=== PATIENT | female | born 1980 | race African-American/Black ===

== ENCOUNTER 2023-07-20 16:33 | Inpatient (IN) | payer MEDICAID ==
[~2023-07-20] VITALS: Ht 149.9 cm; Wt 46.9 kg
[~2023-07-20 16:33] MED LIST: ASPI-1406 PO; ATOR20TA PO; B50 PO; DOCU-150 PO; FAMO20TA8 PO; FOLI-43 PO; FOLI1TAB87 PO; LEVE750T4 MT; LOSA100T33 MT; MESA400C PO; METO-539 PO; NIFE90TA60 PO; POLY510P31 PO
[2023-07-20 18:40] LABS: HEMATOCRIT. 27.7 % (36.0-48.0); HEMOGLOBIN. 8.8 g/dL (12.0-16.0); MEAN CORPUSCULAR HEMOGLOBIN 29.8 pg (28.0-32.0); MEAN CORPUSCULAR HGB CONC 31.8 g/dL (31.0-37.0); MEAN CORPUSCULAR VOLUME 93.7 fL (81.0-99.0); MEAN PLATELET VOLUME 7.8 fl (7.4-10.4); PLATELET 292 x1000/uL (130-400); RED BLOOD CELL COUNT 2.96 mill/uL (4.2-5.4); RED CELL DISTRIBUTION WIDTH 20.6 % (11.6-14.6); WHITE BLOOD COUNT 17.8 x1000/uL (4.5-11.0)
[2023-07-20] MEDS: MORPHINE SULFATE 4 MG/ML CPJ (NOT FOR IM USE) IV ONE (18:40)
[2023-07-20] MEDS: SODIUM CHLORIDE 0.9% 500 ML IV ONE (18:40)
[2023-07-20 18:51] LABS: DIFFERENTIAL COMMENT 1
[2023-07-20 18:59] LABS: ALANINE AMINOTRANSFERASE < 7 IU/L (10-49); ALBUMIN 4.5 g/dL (3.2-4.8); ASPARTATE AMINOTRANSFERASE 11 IU/L (<34); BILIRUBIN TOTAL < 0.2 mg/dL (0.1-1.0); CALCIUM 9.3 mg/dL (8.7-10.4); CARBON DIOXIDE 22 mEq/L (21-32); CHLORIDE 101 mEq/L (98-107); GLUCOSE 109 mg/dL (70-105); POTASSIUM 4.7 mEq/L (3.5-5.1); PROTEIN TOTAL 8.6 g/dL (6.0-8.3); SODIUM 136 mEq/L (136-145); UREA NITROGEN BLOOD 47 mg/dL (9-23)
[2023-07-20] MEDS: PIPERACILLIN/TAZO 3.375G/50ML 50 ML IV NR (19:00)
[2023-07-20 19:02] LABS: THYROID STIMULATING HORMONE 1.04 uIU/mL (0.55-4.78)
[2023-07-20 19:03] LABS: CREATININE 7.9 mg/dL (0.6-1.0); ETHANOL BLOOD < 10 mg/dL (<10); PROTHROMBIN TIME 11.6 sec (9.6-11.0); TROPONIN I HIGH SENSITIVITY 538 ng/L (3.0-34)
[2023-07-20 21:20] LABS: PLATELET ESTIMATE NORMAL
[2023-07-20 21:21] LABS: ANISOCYTOSIS 2+
[2023-07-20 21:22] LABS: TROPONIN I HIGH SENSITIVITY 457 ng/L (3.0-34)
[2023-07-20] MEDS: VANCOMYCIN 1G PREMIX 200 ML IV NR (22:51)
[2023-07-21] VITALS (13 sets, daily range): BP systolic 126–173; BP diastolic 81–161; PULSE 82–108; RESP 16–28; TEMP 97.4–99.4
[2023-07-21] MEDS ORDERED: ACETAMINOPHEN 325MG TABLET PO PRN (10:15)
[2023-07-21] MEDS ORDERED: IPRATROPIUM/ALBUTEROL 0.5-3(2.5)MG/3ML NEB HHN PRN (10:15)
[2023-07-21] MEDS: CLONIDINE 0.1MG TABLET PO PRN (10:57)
[2023-07-21] MEDS: ACETAMINOPHEN 325MG TABLET PO PRN (10:58)
[2023-07-21] MEDS: NIFEDIPINE XL 30MG TAB PO SCH (11:00)
[2023-07-21] MEDS: ASPIRIN 81MG EC TABLET PO SCH (11:00)
[2023-07-21] MEDS: DOCUSATE SODIUM 100MG CAPSULE PO PRN (11:02)
[2023-07-21] MEDS: NITROGLYCERIN OINT 1GM/INCH UDPKT TD SCH (12:00)
[2023-07-21 16:53] LABS: BASOPHILS % 0.3 % (0.0-2.0); EOSINOPHILS % 0.4 % (0.0-5.0); HEMATOCRIT. 24.3 % (36.0-48.0); HEMOGLOBIN. 7.8 g/dL (12.0-16.0); LYMPHOCYTES % 7.7 % (20.0-50.0); MEAN CORPUSCULAR HEMOGLOBIN 30.5 pg (28.0-32.0); MEAN CORPUSCULAR HGB CONC 32.3 g/dL (31.0-37.0); MEAN CORPUSCULAR VOLUME 94.4 fL (81.0-99.0); MEAN PLATELET VOLUME 7.7 fl (7.4-10.4); MONOCYTES % 3.4 % (2.0-8.0); NEUTROPHILS % 88.2 % (40.0-76.0); PLATELET 259 x1000/uL (130-400); RED BLOOD CELL COUNT 2.57 mill/uL (4.2-5.4); RED CELL DISTRIBUTION WIDTH 20.5 % (11.6-14.6); WHITE BLOOD COUNT 10.4 x1000/uL (4.5-11.0)
[2023-07-21 17:31] LABS: HCG SCREEN NEGATIVE
[2023-07-21] MEDS: AZITHROMYCIN 500 MG TABLET PO NR (17:31)
[2023-07-21] MEDS: DIPHENHYDRAMINE 50MG/ML VIAL IV NR (17:32)
[2023-07-21] MEDS: CEFEPIME 1,000 MG in DEXTROSE 5% WATER 50 ML IV SCH (18:05)
[2023-07-21 18:45] LABS: HEPATITIS A AB IGM NEGATIVE (Negative); HEPATITIS B CORE AB IGM NEGATIVE (Negative); HEPATITIS B SURFACE ANTIGEN NEGATIVE (Negative); HEPATITIS C AB NON REACTIVE (Neg) (Negative)
[2023-07-21] MEDS: VANCOMYCIN 500MG PREMIX 100 ML IV NR (20:29)
[2023-07-21] MEDS: METOPROLOL TARTRATE 25MG TABLET PO SCH (20:58)
[2023-07-21] MEDS: EPOETIN ALFA 4000UNITS/ML VIAL SUBCUT NR (20:58)
[2023-07-21] MEDS: ATORVASTATIN CALCIUM 20MG TABLET PO SCH (20:58)
[2023-07-22] VITALS (9 sets, daily range): BP systolic 120–145; BP diastolic 78–94; PULSE 90–100; RESP 16–25; TEMP 97.7–100.8
[2023-07-22] MEDS: NITROGLYCERIN 0.4MG TABLET SL SL PRN (01:41)
[2023-07-22 06:27] LABS: BASOPHILS % 0.6 % (0.0-2.0); DIFFERENTIAL COMMENT 0; EOSINOPHILS % 1.4 % (0.0-5.0); LYMPHOCYTES % 15.8 % (20.0-50.0); MEAN CORPUSCULAR HEMOGLOBIN 30.3 pg (28.0-32.0); MEAN CORPUSCULAR HGB CONC 32.3 g/dL (31.0-37.0); MEAN CORPUSCULAR VOLUME 93.8 fL (81.0-99.0); MEAN PLATELET VOLUME 7.8 fl (7.4-10.4); MONOCYTES % 10.7 % (2.0-8.0); NEUTROPHILS % 71.5 % (40.0-76.0); PLATELET 249 x1000/uL (130-400); RED CELL DISTRIBUTION WIDTH 19.9 % (11.6-14.6); WHITE BLOOD COUNT 7.9 x1000/uL (4.5-11.0)
[2023-07-22 06:59] LABS: ALANINE AMINOTRANSFERASE < 7 IU/L (10-49); ALBUMIN 3.9 g/dL (3.2-4.8); ASPARTATE AMINOTRANSFERASE 11 IU/L (<34); BILIRUBIN TOTAL < 0.2 mg/dL (0.1-1.0); CALCIUM 8.9 mg/dL (8.7-10.4); CARBON DIOXIDE 25 mEq/L (21-32); CHLORIDE 99 mEq/L (98-107); CHOLESTEROL 136 mg/dL (<200); GLUCOSE 118 mg/dL (70-105); HDL CHOLESTEROL 43 mg/dL (>65); LDL CHOLESTEROL 62 mg/dL (5-100); POTASSIUM 4.6 mEq/L (3.5-5.1); PROTEIN TOTAL 7.3 g/dL (6.0-8.3); SODIUM 134 mEq/L (136-145); TRIGLYCERIDE 91 mg/dL (0-150); UREA NITROGEN BLOOD 45 mg/dL (9-23)
[2023-07-22 07:00] LABS: CREATININE 6.7 mg/dL (0.6-1.0)
[2023-07-22 07:45] LABS: TROPONIN I HIGH SENSITIVITY 404 ng/L (3.0-34)
[2023-07-22 08:28] LABS: HEMATOCRIT. 20.6 % (36.0-48.0); HEMOGLOBIN. 6.7 g/dL (12.0-16.0)
[2023-07-22] MEDS: AZITHROMYCIN 250 MG TABLET PO SCH (09:08)
[2023-07-22] MEDS: DIPHENHYDRAMINE 50MG/ML VIAL IV PRN (10:56)
[2023-07-22] MEDS ORDERED: NALOXONE HCL 0.4MG/ML VIAL IV PRN (15:15)
[2023-07-22] MEDS: DIPHENHYDRAMINE 25MG CAPSULE PO PRN (15:20)
[2023-07-22] MEDS: HYDROCODONE/ACETAMINOPHEN 5/325MG TABLET PO PRN (15:21)
[2023-07-22 21:55] LABS: *AMPHETAMINES SCREEN URINE NEGATIVE (NEGATIVE); *BARBITURATES SCREEN URINE NEGATIVE (NEGATIVE); *BENZODIAZEPINES SCREEN URINE NEGATIVE (NEGATIVE); *COCAINE SCREEN URINE NEGATIVE (NEGATIVE); CANNABINOID URINE SCREEN NEGATIVE (NEGATIVE); ECSTASY MDMA SCREEN URINE NEGATIVE (NEGATIVE); METHADONE URINE SCREEN Neg (NEGATIVE); OPIATES URINE SCREEN PRESUMPTIVE POSITIVE (NEGATIVE); PHENCYCLIDINE URINE SCREEN NEGATIVE (NEGATIVE)
[2023-07-23] VITALS (12 sets, daily range): BP systolic 147–178; BP diastolic 90–119; PULSE 86–106; RESP 18–30; TEMP 97.6–98.4
[2023-07-23] MEDS: FAMOTIDINE 20MG/2ML VIAL IV NR (09:23)
[2023-07-23] MEDS: MORPHINE SULFATE 2 MG/ML CPJ (NOT FOR IM USE) IV NR (09:25)
[2023-07-23] MEDS: ONDANSETRON HCL 4MG/2ML INJ IV PRN (11:35)
[2023-07-23 12:40] LABS: HEMATOCRIT. 29.6 % (36.0-48.0); HEMOGLOBIN. 9.5 g/dL (12.0-16.0); MEAN CORPUSCULAR HEMOGLOBIN 29.2 pg (28.0-32.0); MEAN CORPUSCULAR HGB CONC 32.2 g/dL (31.0-37.0); MEAN CORPUSCULAR VOLUME 90.7 fL (81.0-99.0); MEAN PLATELET VOLUME 7.8 fl (7.4-10.4); PLATELET 312 x1000/uL (130-400); RED BLOOD CELL COUNT 3.26 mill/uL (4.2-5.4); WHITE BLOOD COUNT 13.5 x1000/uL (4.5-11.0)
[2023-07-23 12:43] LABS: DIFFERENTIAL COMMENT 1
[2023-07-23] MEDS ORDERED: LIDOCAINE HCL 1% 10 MG/ML 10ML VIAL ONE (12:53)
[2023-07-23] MEDS ORDERED: METO25TA6 PO (13:43)
[2023-07-23] MEDS ORDERED: NIFE-33 PO (13:43)
[2023-07-23 14:14] LABS: CALCIUM 8.7 mg/dL (8.7-10.4); CREATININE 4.8 mg/dL (0.6-1.0); POTASSIUM 3.7 mEq/L (3.5-5.1)
[2023-07-23] MEDS: LACTULOSE 20G/30ML UDC PO SCH (14:41)
[2023-07-23 17:53] LABS: PLATELET ESTIMATE NORMAL
[2023-07-23 17:54] LABS: ANISOCYTOSIS 2+
[2023-07-23] MEDS: EPOETIN ALFA 4000UNITS/ML VIAL SUBCUT SCH (20:52)
[2023-07-24] VITALS (7 sets, daily range): BP systolic 133–159; BP diastolic 87–103; PULSE 95–118; RESP 19–35; TEMP 99.2–99.9; O2SAT 98
[2023-07-24 06:16] LABS: HEMATOCRIT. 28.5 % (36.0-48.0); MEAN CORPUSCULAR HEMOGLOBIN 29.1 pg (28.0-32.0); MEAN CORPUSCULAR HGB CONC 31.5 g/dL (31.0-37.0); MEAN CORPUSCULAR VOLUME 92.4 fL (81.0-99.0); MEAN PLATELET VOLUME 7.4 fl (7.4-10.4); PLATELET 314 x1000/uL (130-400); RED BLOOD CELL COUNT 3.08 mill/uL (4.2-5.4); RED CELL DISTRIBUTION WIDTH 19.9 % (11.6-14.6); WHITE BLOOD COUNT 14.3 x1000/uL (4.5-11.0)
[2023-07-24 06:22] LABS: DIFFERENTIAL COMMENT 1
[2023-07-24 06:59] LABS: CALCIUM 9.4 mg/dL (8.7-10.4); POTASSIUM 4.8 mEq/L (3.5-5.1)
[2023-07-24 07:04] LABS: CREATININE 7.5 mg/dL (0.6-1.0)
[2023-07-24] MEDS: POLYETHYLENE GLYCOL 3350 (17GM) 1 DOSE PACK PO SCH (09:30)
[2023-07-24] MEDS: NITROGLYCERIN SPRAY/4.9GM CAN TL SCH (10:00)
[2023-07-24] MEDS ORDERED: IOHEXOL-350 100 ML BOTTLE ONE (10:35)
[2023-07-24 13:41] LABS: ANISOCYTOSIS 1+; PLATELET ESTIMATE NORMAL
[2023-07-24] MEDS: METOPROLOL TARTRATE 25MG TABLET PO SCH (14:26)
[2023-07-24] MEDS: METOPROLOL TARTRATE 50MG TABLET PO SCH (20:32)
[2023-07-25] VITALS (14 sets, daily range): BP systolic 87–140; BP diastolic 64–103; PULSE 88–117; RESP 15–35; TEMP 97.5–99.6
[2023-07-25] MEDS: LACTULOSE 20G/30ML UDC PO SCH (12:00)
[2023-07-25] MEDS: LACTULOSE 20G/30ML UDC PO NR (15:35)
== END 2023-07-25 18:45 | disposition home or self-care (01) | DRG 720 ==
LOC: ER 16:33 → CANBEDREQ 18:16 → 3WST 19:06
PROVIDERS: ADMIT Internal Medicine; ATTEND Internal Medicine
PROC: 5A1D70Z Performance of Urinary Filtration, Intermittent, Less than 6 Hours Per Day (ICD-10-PCS; 2023-07-21)
PROC: 30233N1 Transfusion of Nonautologous Red Blood Cells into Peripheral Vein, Percutaneous Approach (ICD-10-PCS; 2023-07-22)
PROC: 02HV33Z Insertion of Infusion Device into Superior Vena Cava, Percutaneous Approach (ICD-10-PCS; principal; 2023-07-23)
PROC: B548ZZA Ultrasonography of Superior Vena Cava, Guidance (ICD-10-PCS; 2023-07-23)
PROC: 5A1D70Z Performance of Urinary Filtration, Intermittent, Less than 6 Hours Per Day (ICD-10-PCS; 2023-07-23)
PROC: 5A1D70Z Performance of Urinary Filtration, Intermittent, Less than 6 Hours Per Day (ICD-10-PCS; 2023-07-25)
DX: A41.9 Sepsis, unspecified organism (principal); I13.2 Hypertensive heart and chronic kidney disease with heart failure and with stage 5 chronic kidney disease, or end stage renal disease; I24.89 Other forms of acute ischemic heart disease; D69.6 Thrombocytopenia, unspecified; N18.6 End stage renal disease; D63.8 Anemia in other chronic diseases classified elsewhere; Q24.5 Malformation of coronary vessels; J98.11 Atelectasis; Z20.822 Contact with and (suspected) exposure to COVID-19; I16.0 Hypertensive urgency; J06.9 Acute upper respiratory infection, unspecified; G40.909 Epilepsy, unspecified, not intractable, without status epilepticus; I50.9 Heart failure, unspecified; E78.5 Hyperlipidemia, unspecified; F15.10 Other stimulant abuse, uncomplicated; F16.10 Hallucinogen abuse, uncomplicated; K59.00 Constipation, unspecified; K21.9 Gastro-esophageal reflux disease without esophagitis; I71.9 Aortic aneurysm of unspecified site, without rupture; Z99.2 Dependence on renal dialysis; Z91.199 Patient's noncompliance with other medical treatment and regimen due to unspecified reason; Z79.899 Other long term (current) drug therapy
CPT/HCPCS: 36415; 36573; 71045; 75571; 80048; 80053; 80061; 80202; 80305; 80320; 82270; 83605; 83735; 83880; 84145; 84443; 84484; 84703; 85025; 86705; 86709; 86850; 86900; 86920; 87340; 87426; 87804; 90935; 93005; 99285; C1725; J0692; J0885; J1200; J2270; J2405; J2543; J3370; J3490; J7040; J7060; P9016; Q0163; Q9967; G0480

== ENCOUNTER 2023-08-16 21:54 | Inpatient (IN) | payer MEDICAID ==
[~2023-08-16] VITALS: Ht 162.6 cm; Wt 46.3 kg
[~2023-08-16 21:54] MED LIST changes: -LOSA100T33 MT; -METO-539 PO; +METO25TA6 PO; +NIFE-33 PO; -NIFE90TA60 PO
[2023-08-16] MEDS: DIPHENHYDRAMINE 25MG CAPSULE PO ONE (22:43)
[2023-08-16] MEDS: ACETAMINOPHEN 325MG TABLET PO ONE (22:43)
[2023-08-16 23:57] LABS: BASOPHILS % 0.4 % (0.0-2.0); EOSINOPHILS % 0.4 % (0.0-5.0); HEMATOCRIT. 29.5 % (36.0-48.0); HEMOGLOBIN. 9.5 g/dL (12.0-16.0); LYMPHOCYTES % 22.9 % (20.0-50.0); MEAN CORPUSCULAR HEMOGLOBIN 28.8 pg (28.0-32.0); MEAN CORPUSCULAR HGB CONC 32.1 g/dL (31.0-37.0); MEAN CORPUSCULAR VOLUME 89.9 fL (81.0-99.0); MEAN PLATELET VOLUME 7.5 fl (7.4-10.4); MONOCYTES % 2.8 % (2.0-8.0); NEUTROPHILS % 73.5 % (40.0-76.0); PLATELET 369 x1000/uL (130-400); RED BLOOD CELL COUNT 3.28 mill/uL (4.2-5.4); RED CELL DISTRIBUTION WIDTH 21.9 % (11.6-14.6); WHITE BLOOD COUNT 9.9 x1000/uL (4.5-11.0)
[2023-08-16 23:59] LABS: DIFFERENTIAL COMMENT 1
[2023-08-17 00:02] LABS: INR 1.1; PARTIAL THROMBOPLASTIN TIME 30.3 sec (23.4-31.0); PROTHROMBIN TIME 12.1 sec (9.6-11.0)
[2023-08-17 00:14] LABS: ALANINE AMINOTRANSFERASE 9 IU/L (10-49); ALBUMIN 4.5 g/dL (3.2-4.8); ASPARTATE AMINOTRANSFERASE 15 IU/L (<34); BILIRUBIN TOTAL < 0.2 mg/dL (0.1-1.0); CALCIUM 9.4 mg/dL (8.7-10.4); CARBON DIOXIDE 17 mEq/L (21-32); CHLORIDE 95 mEq/L (98-107); GLUCOSE 95 mg/dL (70-105); POTASSIUM 3.3 mEq/L (3.5-5.1); SODIUM 134 mEq/L (136-145); UREA NITROGEN BLOOD 98 mg/dL (9-23)
[2023-08-17 00:18] LABS: PROTEIN TOTAL 9.4 g/dL (6.0-8.3)
[2023-08-17 00:24] LABS: ETHANOL BLOOD < 10 mg/dL (<10); TROPONIN I HIGH SENSITIVITY 162 ng/L (3.0-34)
[2023-08-17] MEDS: HYDROCODONE/ACETAMINOPHEN 5/325MG TABLET PO NR (01:27)
[2023-08-17] MEDS: DIPHENHYDRAMINE 50MG/ML VIAL IV NR (01:27)
[2023-08-17] MEDS ORDERED: ACETAMINOPHEN 325MG TABLET PO PRN (13:45)
[2023-08-17] MEDS ORDERED: ONDANSETRON HCL 4MG/2ML INJ IV PRN (13:45)
[2023-08-17 16:00] VITALS: BP 141/99; PULSE 108; RESP 30; TEMP 97.5
[2023-08-17] MEDS ORDERED: NALOXONE HCL 0.4MG/ML VIAL IV PRN (16:45)
[2023-08-17] MEDS: HYDROCODONE/ACETAMINOPHEN 5/325MG TABLET PO PRN (17:01)
[2023-08-17 20:10] VITALS: BP 139/69; PULSE 97; RESP 15; TEMP 97.3
[2023-08-17] MEDS: EPOETIN ALFA 4000UNITS/ML VIAL SUBCUT SCH (21:00)
[2023-08-17 21:45] LABS: HEPATITIS A AB IGM NEGATIVE (Negative); HEPATITIS B CORE AB IGM NEGATIVE (Negative); HEPATITIS B SURFACE ANTIGEN NEGATIVE (Negative); HEPATITIS C AB NON REACTIVE (Neg) (Negative)
[2023-08-18] VITALS (15 sets, daily range): BP systolic 111–161; BP diastolic 79–115; PULSE 95–117; RESP 22–33; TEMP 97.3–98.8
[2023-08-18] MEDS: DIPHENHYDRAMINE 25MG CAPSULE PO PRN (01:28)
[2023-08-18 05:30] LABS: *AMPHETAMINES SCREEN URINE PRESUMPTIVE POSITIVE (NEGATIVE); *BARBITURATES SCREEN URINE NEGATIVE (NEGATIVE); *BENZODIAZEPINES SCREEN URINE NEGATIVE (NEGATIVE); *COCAINE SCREEN URINE NEGATIVE (NEGATIVE); CANNABINOID URINE SCREEN NEGATIVE (NEGATIVE); ECSTASY MDMA SCREEN URINE NEGATIVE (NEGATIVE); METHADONE URINE SCREEN Neg (NEGATIVE); OPIATES URINE SCREEN NEGATIVE (NEGATIVE); PHENCYCLIDINE URINE SCREEN NEGATIVE (NEGATIVE)
[2023-08-18] MEDS: CEFTRIAXONE 1GM/50ML 50 ML IV SCH (17:29)
[2023-08-18] MEDS: VANCOMYCIN 1.5GM/250ML IV NR (17:29)
[2023-08-18 22:04] LABS: HEMATOCRIT. 24.2 % (36.0-48.0); HEMOGLOBIN. 7.8 g/dL (12.0-16.0); MEAN CORPUSCULAR HEMOGLOBIN 27.9 pg (28.0-32.0); MEAN CORPUSCULAR HGB CONC 32.1 g/dL (31.0-37.0); MEAN CORPUSCULAR VOLUME 86.8 fL (81.0-99.0); MEAN PLATELET VOLUME 7.7 fl (7.4-10.4); PLATELET 357 x1000/uL (130-400); RED BLOOD CELL COUNT 2.79 mill/uL (4.2-5.4); RED CELL DISTRIBUTION WIDTH 21.3 % (11.6-14.6); WHITE BLOOD COUNT 7.6 x1000/uL (4.5-11.0)
[2023-08-18 22:10] LABS: CALCIUM 8.7 mg/dL (8.7-10.4); POTASSIUM 4.2 mEq/L (3.5-5.1)
[2023-08-18 22:11] LABS: DIFFERENTIAL COMMENT 1
[2023-08-18 22:12] LABS: CREATININE 10.7 mg/dL (0.6-1.0)
[2023-08-18 22:42] LABS: PLATELET ESTIMATE NORMAL
[2023-08-18 22:43] LABS: ANISOCYTOSIS 2+; HYPOCHROMASIA 1+
[2023-08-19 00:10] VITALS: BP 136/99; PULSE 93; RESP 27; TEMP 97.5
[2023-08-19 04:10] VITALS: BP 179/90; PULSE 102; RESP 29; TEMP 97.5
[2023-08-19 08:00] VITALS: BP 115/87; PULSE 89; RESP 22; TEMP 98
[2023-08-19 12:00] VITALS: BP 137/106; PULSE 91; RESP 28; TEMP 97.4
[2023-08-19] MEDS ORDERED: LEVO250T74 MT (14:37)
[2023-08-19 16:00] VITALS: BP 136/90; PULSE 97; RESP 24; TEMP 98.2
[2023-08-19 20:00] VITALS: BP 156/110; PULSE 129; RESP 30; TEMP 101.2
[2023-08-20] VITALS (15 sets, daily range): BP systolic 90–141; BP diastolic 56–108; PULSE 79–128; RESP 20–28; TEMP 97–101.9; O2SAT 96
[2023-08-20] MEDS: METOPROLOL TARTRATE 25MG TABLET PO SCH (09:42)
[2023-08-20] MEDS ORDERED: METOPROLOL TARTRATE 5MG/5ML VIAL IV NR (17:45)
== END 2023-08-20 20:42 | disposition home or self-care (01) | DRG 194 ==
LOC: ER 21:54 → 3WST 08-17 02:05 → EDBEDREQ 08-17 02:21
PROVIDERS: ADMIT Internal Medicine; ATTEND Internal Medicine
PROC: 5A1D70Z Performance of Urinary Filtration, Intermittent, Less than 6 Hours Per Day (ICD-10-PCS; principal; 2023-08-18)
PROC: 5A1D70Z Performance of Urinary Filtration, Intermittent, Less than 6 Hours Per Day (ICD-10-PCS; 2023-08-20)
DX: I13.2 Hypertensive heart and chronic kidney disease with heart failure and with stage 5 chronic kidney disease, or end stage renal disease (principal); N18.6 End stage renal disease; D69.6 Thrombocytopenia, unspecified; E87.1 Hypo-osmolality and hyponatremia; D63.8 Anemia in other chronic diseases classified elsewhere; R07.9 Chest pain, unspecified; Q24.5 Malformation of coronary vessels; F15.10 Other stimulant abuse, uncomplicated; R55 Syncope and collapse; F19.10 Other psychoactive substance abuse, uncomplicated; G40.909 Epilepsy, unspecified, not intractable, without status epilepticus; Z91.199 Patient's noncompliance with other medical treatment and regimen due to unspecified reason; I50.9 Heart failure, unspecified; Z99.2 Dependence on renal dialysis
CPT/HCPCS: 36415; 71045; 80048; 80053; 80305; 80320; 82962; 83880; 84145; 84484; 85025; 86705; 86709; 87340; 90935; 93005; 99285; C1893; J0696; J0885; J1200; J3370; J3490; Q0163; G0480

== ENCOUNTER 2023-09-09 12:32 | Inpatient (IN) | payer MEDICAID ==
[~2023-09-09] VITALS: Ht 149.9 cm; Wt 47.6 kg
[~2023-09-09 12:32] MED LIST changes: +LEVO250T74 MT
[2023-09-09 12:34] VITALS: O2SAT 99
[2023-09-09 13:26] LABS: MEAN CORPUSCULAR HEMOGLOBIN 27.4 pg (28.0-32.0); MEAN CORPUSCULAR HGB CONC 31.4 g/dL (31.0-37.0); MEAN CORPUSCULAR VOLUME 87.1 fL (81.0-99.0); MEAN PLATELET VOLUME 7.8 fl (7.4-10.4); PLATELET 493 x1000/uL (130-400); RED BLOOD CELL COUNT 2.28 mill/uL (4.2-5.4); RED CELL DISTRIBUTION WIDTH 24.2 % (11.6-14.6); WHITE BLOOD COUNT 17.2 x1000/uL (4.5-11.0)
[2023-09-09 13:29] LABS: CHLORIDE 99 mEq/L (98-107); POTASSIUM 3.1 mEq/L (3.5-5.1); SODIUM 137 mEq/L (136-145)
[2023-09-09 13:30] LABS: CALCIUM 8.9 mg/dL (8.7-10.4); CARBON DIOXIDE 19 mEq/L (21-32)
[2023-09-09 13:32] LABS: INR 1.1; PARTIAL THROMBOPLASTIN TIME 29.5 sec (23.4-31.0); PROTHROMBIN TIME 12.4 sec (9.6-11.0)
[2023-09-09 13:33] LABS: HCG SCREEN NEGATIVE
[2023-09-09 13:35] LABS: GLUCOSE 89 mg/dL (70-105); UREA NITROGEN BLOOD 81 mg/dL (9-23)
[2023-09-09 13:37] LABS: ALANINE AMINOTRANSFERASE 8 IU/L (10-49); ALBUMIN 3.8 g/dL (3.2-4.8); ASPARTATE AMINOTRANSFERASE 20 IU/L (<34); BILIRUBIN TOTAL < 0.2 mg/dL (0.1-1.0); PROTEIN TOTAL 8.3 g/dL (6.0-8.3)
[2023-09-09 13:43] LABS: DIFFERENTIAL COMMENT 1
[2023-09-09 13:44] LABS: HEMATOCRIT. 19.9 % (36.0-48.0); HEMOGLOBIN. 6.2 g/dL (12.0-16.0)
[2023-09-09 13:47] LABS: TROPONIN I HIGH SENSITIVITY 108 ng/L (3.0-34)
[2023-09-09 14:05] LABS: ANISOCYTOSIS 3+; HYPOCHROMASIA 1+; PLATELET ESTIMATE INCREASED; TARGET CELLS FEW
[2023-09-09] MEDS: ACETAMINOPHEN 325MG TABLET PO ONE (16:42)
[2023-09-09 19:53] LABS: HEPATITIS B SURFACE ANTIGEN NEGATIVE (Negative)
[2023-09-09] MEDS: DIPHENHYDRAMINE 50MG/ML VIAL IV ONE (20:07)
[2023-09-09 20:13] LABS: HEPATITIS A AB IGM NEGATIVE (Negative)
[2023-09-09 20:14] LABS: HEPATITIS B CORE AB IGM NEGATIVE (Negative); HEPATITIS C AB NON REACTIVE (Neg) (Negative)
[2023-09-09 23:00] VITALS: BP 118/91; PULSE 105; RESP 18; TEMP 98
[2023-09-09] MEDS ORDERED: NALOXONE HCL 0.4MG/ML VIAL IV PRN (23:45)
[2023-09-10] VITALS (13 sets, daily range): BP systolic 134–163; BP diastolic 66–103; PULSE 70–122; RESP 16–20; TEMP 97–98.6
[2023-09-10] MEDS: DIPHENHYDRAMINE 50MG/ML VIAL IV NR (00:11)
[2023-09-10] MEDS: HYDROCODONE/ACETAMINOPHEN 5/325MG TABLET PO PRN (00:12)
[2023-09-10] MEDS: DIPHENHYDRAMINE 50MG/ML VIAL IV PRN (06:30)
[2023-09-10 07:11] LABS: BASOPHILS % 0.1 % (0.0-2.0); DIFFERENTIAL COMMENT 0; EOSINOPHILS % 0.7 % (0.0-5.0); HEMATOCRIT. 27.5 % (36.0-48.0); HEMOGLOBIN. 8.7 g/dL (12.0-16.0); LYMPHOCYTES % 11.7 % (20.0-50.0); MEAN CORPUSCULAR HEMOGLOBIN 26.9 pg (28.0-32.0); MEAN CORPUSCULAR HGB CONC 31.7 g/dL (31.0-37.0); MEAN CORPUSCULAR VOLUME 84.9 fL (81.0-99.0); MEAN PLATELET VOLUME 7.9 fl (7.4-10.4); MONOCYTES % 2.1 % (2.0-8.0); NEUTROPHILS % 85.4 % (40.0-76.0); PLATELET 534 x1000/uL (130-400); RED BLOOD CELL COUNT 3.24 mill/uL (4.2-5.4); RED CELL DISTRIBUTION WIDTH 21.7 % (11.6-14.6); WHITE BLOOD COUNT 16.6 x1000/uL (4.5-11.0)
[2023-09-10 07:34] LABS: CHLORIDE 96 mEq/L (98-107); POTASSIUM 3.3 mEq/L (3.5-5.1); SODIUM 133 mEq/L (136-145)
[2023-09-10 07:35] LABS: CALCIUM 8.7 mg/dL (8.7-10.4); CARBON DIOXIDE 16 mEq/L (21-32)
[2023-09-10 07:40] LABS: CREATININE 11.4 mg/dL (0.6-1.0); GLUCOSE 71 mg/dL (70-105); UREA NITROGEN BLOOD 80 mg/dL (9-23)
[2023-09-10 07:41] LABS: ALANINE AMINOTRANSFERASE < 7 IU/L (10-49); ASPARTATE AMINOTRANSFERASE 18 IU/L (<34)
[2023-09-10 07:42] LABS: ALBUMIN 3.7 g/dL (3.2-4.8); BILIRUBIN TOTAL 0.2 mg/dL (0.1-1.0); PROTEIN TOTAL 7.7 g/dL (6.0-8.3)
[2023-09-10 16:15] LABS: TROPONIN I HIGH SENSITIVITY 97 ng/L (3.0-34)
[2023-09-10] MEDS: MESALAMINE 400 MG CAPSULE.DR PO SCH (17:14)
[2023-09-10] MEDS: ATORVASTATIN CALCIUM 20MG TABLET PO SCH (20:49)
[2023-09-10] MEDS: METOPROLOL TARTRATE 25MG TABLET PO SCH (20:50)
[2023-09-10] MEDS: LEVETIRACETAM 500MG/5ML CUP PO SCH (20:56)
[2023-09-10] MEDS: NIFEDIPINE XL 30MG TAB PO SCH (21:09)
[2023-09-10] MEDS: EPOETIN ALFA 4000UNITS/ML VIAL SUBCUT SCH (22:22)
[2023-09-11] VITALS (14 sets, daily range): BP systolic 105–130; BP diastolic 60–87; PULSE 82–108; RESP 15–20; TEMP 97–98.6
[2023-09-11 06:01] LABS: POTASSIUM 3.1 mEq/L (3.5-5.1)
[2023-09-11 06:02] LABS: CALCIUM 8.6 mg/dL (8.7-10.4)
[2023-09-11 06:08] LABS: CREATININE 7.9 mg/dL (0.6-1.0)
[2023-09-11 07:19] LABS: BASOPHILS % 0.4 % (0.0-2.0); EOSINOPHILS % 0.6 % (0.0-5.0); HEMATOCRIT. 25.8 % (36.0-48.0); HEMOGLOBIN. 8.3 g/dL (12.0-16.0); LYMPHOCYTES % 12.5 % (20.0-50.0); MEAN CORPUSCULAR HEMOGLOBIN 26.7 pg (28.0-32.0); MEAN CORPUSCULAR HGB CONC 32.1 g/dL (31.0-37.0); MEAN CORPUSCULAR VOLUME 83.3 fL (81.0-99.0); MEAN PLATELET VOLUME 7.5 fl (7.4-10.4); MONOCYTES % 2.6 % (2.0-8.0); NEUTROPHILS % 83.9 % (40.0-76.0); PLATELET 457 x1000/uL (130-400); RED BLOOD CELL COUNT 3.09 mill/uL (4.2-5.4); RED CELL DISTRIBUTION WIDTH 21.9 % (11.6-14.6); WHITE BLOOD COUNT 14.9 x1000/uL (4.5-11.0)
[2023-09-11] MEDS: FOLIC ACID/VITAMIN B COMP W-C TABLET PO SCH (08:22)
[2023-09-11] MEDS: FAMOTIDINE 20MG TABLET PO SCH (08:25)
[2023-09-11] MEDS: ASPIRIN 81MG EC TABLET PO SCH (08:25)
[2023-09-11] MEDS: FOLIC ACID 1MG TABLET PO SCH (08:26)
[2023-09-11] MEDS: POTASSIUM CHLORIDE 20MEQ TABLET SR PO SCH (12:45)
[2023-09-11] MEDS: PIPERACILLIN/TAZO 3.375G/50ML IV SCH (12:51)
[2023-09-11] MEDS ORDERED: PIPERACILLIN/TAZO 3.375G/50ML 50 ML IV SCH (14:00)
[2023-09-11] MEDS: AZITHROMYCIN 500 MG TABLET PO NR (17:15)
[2023-09-11] MEDS: VANCOMYCIN 1G PREMIX 200 ML IV SCH (17:16)
[2023-09-12] VITALS: BP 122/61; PULSE 96; RESP 18; TEMP 97.8
[2023-09-12 04:00] VITALS: BP 105/73; PULSE 95; RESP 17; TEMP 97.5
[2023-09-12 08:00] VITALS: PULSE 98; RESP 18; TEMP 98.1
[2023-09-12] MEDS: AZITHROMYCIN 500 MG TABLET PO SCH (08:45)
[2023-09-12 12:04] VITALS: BP 108/77; PULSE 89; RESP 17; TEMP 97.9
[2023-09-12] MEDS: POTASSIUM CHLORIDE 20MEQ TABLET SR PO NR (13:40)
[2023-09-12 16:23] VITALS: BP 104/71; PULSE 94; RESP 16; TEMP 97.6
[2023-09-12 17:57] LABS: BASOPHILS % 0.2 % (0.0-2.0); EOSINOPHILS % 0.7 % (0.0-5.0); HEMATOCRIT. 26.8 % (36.0-48.0); HEMOGLOBIN. 8.4 g/dL (12.0-16.0); MEAN CORPUSCULAR HEMOGLOBIN 26.9 pg (28.0-32.0); MEAN CORPUSCULAR HGB CONC 31.4 g/dL (31.0-37.0); MEAN CORPUSCULAR VOLUME 85.8 fL (81.0-99.0); MEAN PLATELET VOLUME 7.3 fl (7.4-10.4); MONOCYTES % 5.5 % (2.0-8.0); NEUTROPHILS % 81.6 % (40.0-76.0); PLATELET 500 x1000/uL (130-400); RED BLOOD CELL COUNT 3.12 mill/uL (4.2-5.4); RED CELL DISTRIBUTION WIDTH 21.5 % (11.6-14.6); WHITE BLOOD COUNT 11.7 x1000/uL (4.5-11.0)
[2023-09-12 18:03] LABS: CHLORIDE 97 mEq/L (98-107); POTASSIUM 4.3 mEq/L (3.5-5.1); SODIUM 135 mEq/L (136-145)
[2023-09-12 18:04] LABS: CALCIUM 8.8 mg/dL (8.7-10.4); CARBON DIOXIDE 23 mEq/L (21-32)
[2023-09-12 18:09] LABS: GLUCOSE 81 mg/dL (70-105); UREA NITROGEN BLOOD 43 mg/dL (9-23)
[2023-09-12 18:11] LABS: PHOSPHORUS 5.8 mg/dL (2.5-4.9)
[2023-09-12 18:12] LABS: CREATININE 6.5 mg/dL (0.6-1.0)
[2023-09-12 20:00] VITALS: BP 109/75; PULSE 100; RESP 18; TEMP 97.9
[2023-09-12 20:57] LABS: *AMPHETAMINES SCREEN URINE PRESUMPTIVE POSITIVE (NEGATIVE); *BARBITURATES SCREEN URINE NEGATIVE (NEGATIVE); *BENZODIAZEPINES SCREEN URINE NEGATIVE (NEGATIVE); *COCAINE SCREEN URINE NEGATIVE (NEGATIVE); CANNABINOID URINE SCREEN NEGATIVE (NEGATIVE); ECSTASY MDMA SCREEN URINE NEGATIVE (NEGATIVE); METHADONE URINE SCREEN NEGATIVE (NEGATIVE); OPIATES URINE SCREEN NEGATIVE (NEGATIVE); PHENCYCLIDINE URINE SCREEN NEGATIVE (NEGATIVE)
[2023-09-12] MEDS: QUETIAPINE FUMARATE 25MG TABLET PO SCH (22:57)
[2023-09-13] VITALS (9 sets, daily range): BP systolic 106–132; BP diastolic 70–85; PULSE 77–103; RESP 18–20; TEMP 97–98
[2023-09-13] MEDS: CALCIUM ACETATE 667MG CAPSULE PO SCH (16:16)
[2023-09-14] VITALS: BP 125/76; PULSE 97; RESP 18; TEMP 98.1
[2023-09-14] MEDS: VANCOMYCIN 500MG/100ML IV NR (01:15)
[2023-09-14 04:00] VITALS: BP 113/77; PULSE 79; RESP 18; TEMP 98.6
[2023-09-14 08:00] VITALS: BP 130/94; PULSE 93; RESP 18; TEMP 97.9
[2023-09-14 12:00] VITALS: BP 131/91; PULSE 78; RESP 18; TEMP 96.5
[2023-09-14 15:57] LABS: BASOPHILS % 0.6 % (0.0-2.0); HEMATOCRIT. 27.6 % (36.0-48.0); HEMOGLOBIN. 8.8 g/dL (12.0-16.0); LYMPHOCYTES % 12.4 % (20.0-50.0); MEAN CORPUSCULAR HEMOGLOBIN 27.6 pg (28.0-32.0); MEAN CORPUSCULAR VOLUME 86.1 fL (81.0-99.0); MONOCYTES % 4.7 % (2.0-8.0); NEUTROPHILS % 81.3 % (40.0-76.0); PLATELET 528 x1000/uL (130-400); RED BLOOD CELL COUNT 3.21 mill/uL (4.2-5.4); RED CELL DISTRIBUTION WIDTH 22.4 % (11.6-14.6); WHITE BLOOD COUNT 12.6 x1000/uL (4.5-11.0)
[2023-09-14 16:00] LABS: DIFFERENTIAL COMMENT 1
[2023-09-14 16:02] LABS: ADD RBC MORPHOLOGY YES
[2023-09-14 16:09] LABS: POTASSIUM 4.3 mEq/L (3.5-5.1)
[2023-09-14 16:10] LABS: CALCIUM 8.6 mg/dL (8.7-10.4)
[2023-09-14 16:24] LABS: CREATININE 7.2 mg/dL (0.6-1.0)
[2023-09-14 17:14] VITALS: BP 134/91; PULSE 89; RESP 20; TEMP 97.7
[2023-09-14 17:47] LABS: ANISOCYTOSIS 2+; PLATELET ESTIMATE INCREASED
[2023-09-14 17:48] LABS: HYPOCHROMASIA 1+
[2023-09-14 20:00] VITALS: BP 138/78; PULSE 95; RESP 17; TEMP 97.9
[2023-09-14] MEDS: QUETIAPINE FUMARATE 50MG TABLET PO SCH (21:13)
[2023-09-15] VITALS (12 sets, daily range): BP systolic 122–152; BP diastolic 61–107; PULSE 79–113; RESP 16–18; TEMP 97.2–99.7
[2023-09-16] VITALS (9 sets, daily range): BP systolic 118–151; BP diastolic 83–103; PULSE 89–113; RESP 16–18; TEMP 97.2–98.8
[2023-09-16 09:50] LABS: BASOPHILS % 0.3 % (0.0-2.0); EOSINOPHILS % 1.2 % (0.0-5.0); HEMATOCRIT. 22.9 % (36.0-48.0); HEMOGLOBIN. 7.2 g/dL (12.0-16.0); LYMPHOCYTES % 9.6 % (20.0-50.0); MEAN CORPUSCULAR HEMOGLOBIN 26.9 pg (28.0-32.0); MEAN CORPUSCULAR HGB CONC 31.4 g/dL (31.0-37.0); MEAN CORPUSCULAR VOLUME 85.7 fL (81.0-99.0); MEAN PLATELET VOLUME 7.2 fl (7.4-10.4); NEUTROPHILS % 82.9 % (40.0-76.0); PLATELET 438 x1000/uL (130-400); RED BLOOD CELL COUNT 2.68 mill/uL (4.2-5.4); WHITE BLOOD COUNT 12.2 x1000/uL (4.5-11.0)
[2023-09-16 09:53] LABS: DIFFERENTIAL COMMENT 1
[2023-09-16] MEDS ORDERED: QUET50TA PO (11:38)
[2023-09-16] MEDS ORDERED: CALC667C PO (11:38)
[2023-09-16 13:12] LABS: POTASSIUM 3.6 mEq/L (3.5-5.1)
[2023-09-16 13:13] LABS: CALCIUM 8.4 mg/dL (8.7-10.4)
[2023-09-16 13:20] LABS: CREATININE 6.2 mg/dL (0.6-1.0)
[2023-09-16] MEDS: QUETIAPINE FUMARATE 50MG TABLET PO SCH (20:47)
[2023-09-16 21:06] LABS: BASOPHILS % 0.4 % (0.0-2.0); EOSINOPHILS % 1.6 % (0.0-5.0); HEMATOCRIT. 24.6 % (36.0-48.0); HEMOGLOBIN. 7.8 g/dL (12.0-16.0); LYMPHOCYTES % 17.8 % (20.0-50.0); MEAN CORPUSCULAR HEMOGLOBIN 26.9 pg (28.0-32.0); MEAN CORPUSCULAR HGB CONC 31.5 g/dL (31.0-37.0); MEAN CORPUSCULAR VOLUME 85.4 fL (81.0-99.0); MEAN PLATELET VOLUME 7.2 fl (7.4-10.4); MONOCYTES % 9.3 % (2.0-8.0); NEUTROPHILS % 70.9 % (40.0-76.0); PLATELET 414 x1000/uL (130-400); RED BLOOD CELL COUNT 2.88 mill/uL (4.2-5.4); RED CELL DISTRIBUTION WIDTH 22.7 % (11.6-14.6); WHITE BLOOD COUNT 9.9 x1000/uL (4.5-11.0)
[2023-09-16 21:08] LABS: DIFFERENTIAL COMMENT 1
[2023-09-16 21:22] LABS: POTASSIUM 3.4 mEq/L (3.5-5.1)
[2023-09-16 21:23] LABS: CALCIUM 8.9 mg/dL (8.7-10.4)
[2023-09-16 22:00] LABS: CREATININE 7.2 mg/dL (0.6-1.0)
[2023-09-17] VITALS (12 sets, daily range): BP systolic 128–148; BP diastolic 83–103; PULSE 82–104; RESP 16–18; TEMP 97.6–98.6
[2023-09-17] MEDS ORDERED: AMOX1TAB15 MT (14:17)
== END 2023-09-17 17:58 | disposition left against medical advice (07) | DRG 721 ==
LOC: ER 12:32 → EDBEDREQ 18:29 → EDBEDREQTM 18:29 → 8WST 22:50
PROVIDERS: ADMIT Internal Medicine; ATTEND Internal Medicine
PROC: 30233N1 Transfusion of Nonautologous Red Blood Cells into Peripheral Vein, Percutaneous Approach (ICD-10-PCS; 2023-09-09)
PROC: 5A1D70Z Performance of Urinary Filtration, Intermittent, Less than 6 Hours Per Day (ICD-10-PCS; principal; 2023-09-10)
PROC: 5A1D70Z Performance of Urinary Filtration, Intermittent, Less than 6 Hours Per Day (ICD-10-PCS; 2023-09-11)
PROC: 5A1D70Z Performance of Urinary Filtration, Intermittent, Less than 6 Hours Per Day (ICD-10-PCS; 2023-09-13)
PROC: 5A1D70Z Performance of Urinary Filtration, Intermittent, Less than 6 Hours Per Day (ICD-10-PCS; 2023-09-15)
PROC: 5A1D70Z Performance of Urinary Filtration, Intermittent, Less than 6 Hours Per Day (ICD-10-PCS; 2023-09-17)
DX: T80.211A Bloodstream infection due to central venous catheter, initial encounter (principal); A41.9 Sepsis, unspecified organism; D69.6 Thrombocytopenia, unspecified; I13.2 Hypertensive heart and chronic kidney disease with heart failure and with stage 5 chronic kidney disease, or end stage renal disease; N18.6 End stage renal disease; D63.8 Anemia in other chronic diseases classified elsewhere; E83.51 Hypocalcemia; Z99.2 Dependence on renal dialysis; Z91.148 Patient's other noncompliance with medication regimen for other reason; I50.9 Heart failure, unspecified; G40.909 Epilepsy, unspecified, not intractable, without status epilepticus; F39 Unspecified mood [affective] disorder; E87.6 Hypokalemia; D75.839 Thrombocytosis, unspecified; Z53.29 Procedure and treatment not carried out because of patient's decision for other reasons
CPT/HCPCS: 36415; 71045; 74018; 76700; 80048; 80053; 80202; 80305; 83735; 83880; 84100; 84145; 84484; 84703; 85025; 86705; 86709; 86850; 86900; 86920; 87340; 90935; 93005; 99291; C1893; J0885; J1200; J2543; J3370; P9016

== ENCOUNTER 2023-11-17 14:23 | Emergency (ER) | payer MEDICAID ==
[~2023-11-17] VITALS: Ht 147.3 cm; Wt 45.0 kg
[2023-11-17] MEDS: ALBUTEROL (0.083%) 2.5MG/3ML NEB HHN ONE (07:15)
[~2023-11-17 14:23] MED LIST changes: +CALC667C PO; +CETI10TA6 PO; -LEVO250T74 MT; +QUET50TA PO
[2023-11-17 14:34] VITALS: TEMP 98.4
[2023-11-17] MEDS: MORPHINE SULFATE 4 MG/ML INJ (FOR IV/IM USE) IV STA (15:38)
[2023-11-17 16:02] LABS: CHLORIDE 101 mEq/L (98-107); SODIUM 130 mEq/L (136-145)
[2023-11-17 16:03] LABS: CARBON DIOXIDE 18 mEq/L (21-32)
[2023-11-17 16:04] LABS: CALCIUM 9.3 mg/dL (8.7-10.4)
[2023-11-17 16:05] LABS: BASOPHILS % 0.3 % (0.0-2.0); EOSINOPHILS % 0.1 % (0.0-5.0); HEMOGLOBIN. 7.6 g/dL (12.0-16.0); LYMPHOCYTES % 7.3 % (20.0-50.0); MEAN CORPUSCULAR HEMOGLOBIN 27.3 pg (28.0-32.0); MEAN CORPUSCULAR HGB CONC 30.3 g/dL (31.0-37.0); MEAN CORPUSCULAR VOLUME 90.2 fL (81.0-99.0); MEAN PLATELET VOLUME 6.7 fl (7.4-10.4); MONOCYTES % 6.7 % (2.0-8.0); NEUTROPHILS % 85.6 % (40.0-76.0); PLATELET 226 x1000/uL (130-400); RED BLOOD CELL COUNT 2.77 mill/uL (4.2-5.4); WHITE BLOOD COUNT 11.4 x1000/uL (4.5-11.0)
[2023-11-17 16:06] LABS: HCG SCREEN NEGATIVE
[2023-11-17 16:07] LABS: DIFFERENTIAL COMMENT 1
[2023-11-17 16:08] LABS: ADD RBC MORPHOLOGY YES; GLUCOSE 98 mg/dL (70-105); UREA NITROGEN BLOOD 67 mg/dL (9-23)
[2023-11-17 16:14] VITALS: BP 175/127
[2023-11-17 16:19] LABS: TROPONIN I HIGH SENSITIVITY 103 ng/L (3.0-34)
[2023-11-17 17:15] VITALS: PULSE 122; RESP 22; O2SAT 97
[2023-11-17] MEDS: DEXTROSE 50% WATER 50ML SYRINGE IV ONE (17:40)
[2023-11-17] MEDS: INSULIN REGULAR (HUMULIN R) 1000UNITS/10ML VIAL IV ONE (17:41)
[2023-11-17 18:18] LABS: PLATELET ESTIMATE NORMAL
== END 2023-11-17 19:24 | disposition short-term general hospital (02) ==
LOC: ER 14:25
DX: M25.511 Pain in right shoulder (principal); M25.512 Pain in left shoulder; R06.00 Dyspnea, unspecified; I12.0 Hypertensive chronic kidney disease with stage 5 chronic kidney disease or end stage renal disease; F15.10 Other stimulant abuse, uncomplicated; N18.6 End stage renal disease; Z99.2 Dependence on renal dialysis; Z90.49 Acquired absence of other specified parts of digestive tract; Z79.899 Other long term (current) drug therapy
CPT/HCPCS: 80048; 84703; 83880; 83605; 85025; 84484; 36415; 94640; 93005; 96374; 96375; 99285; J1815; J2270; Z7610 ×2; 94644

== ENCOUNTER 2024-02-15 08:55 | Inpatient (IN) | payer OTHER ==
[~2024-02-15] VITALS: Ht 157.5 cm; Wt 59.4 kg
[~2024-02-15 08:55] MED LIST changes: -B50 PO; -CETI10TA6 PO; -FAMO20TA8 PO; -POLY510P31 PO
[2024-02-15 10:03] LABS: CHLORIDE 99 mEq/L (98-107); POTASSIUM 3.2 mEq/L (3.5-5.1); SODIUM 136 mEq/L (136-145)
[2024-02-15 10:04] LABS: CALCIUM 8.7 mg/dL (8.7-10.4); CARBON DIOXIDE 30 mEq/L (21-32)
[2024-02-15 10:09] LABS: GLUCOSE 97 mg/dL (70-105); UREA NITROGEN BLOOD 20 mg/dL (9-23)
[2024-02-15 10:13] LABS: PROTHROMBIN TIME 11.1 sec (9.6-11.0)
[2024-02-15 10:17] LABS: BASOPHILS % 0.4 % (0.0-2.0); EOSINOPHILS % 2.6 % (0.0-5.0); HEMATOCRIT. 26.8 % (36.0-48.0); HEMOGLOBIN. 8.5 g/dL (12.0-16.0); LYMPHOCYTES % 17.6 % (20.0-50.0); MEAN CORPUSCULAR HEMOGLOBIN 28.2 pg (28.0-32.0); MEAN CORPUSCULAR HGB CONC 31.8 g/dL (31.0-37.0); MEAN CORPUSCULAR VOLUME 88.7 fL (81.0-99.0); MEAN PLATELET VOLUME 6.7 fl (7.4-10.4); MONOCYTES % 12.9 % (2.0-8.0); NEUTROPHILS % 66.5 % (40.0-76.0); PLATELET 249 x1000/uL (130-400); RED BLOOD CELL COUNT 3.02 mill/uL (4.2-5.4); RED CELL DISTRIBUTION WIDTH 18.9 % (11.6-14.6); WHITE BLOOD COUNT 4.9 x1000/uL (4.5-11.0)
[2024-02-15 10:24] LABS: CREATININE 4.6 mg/dL (0.6-1.0)
[2024-02-15 10:28] LABS: TROPONIN I HIGH SENSITIVITY 87 ng/L (3.0-34)
[2024-02-15] MEDS: MORPHINE SULFATE 4 MG/ML INJ (FOR IV/IM USE) IV STA (10:53)
[2024-02-15] MEDS: ONDANSETRON HCL 4MG/2ML INJ IV STA (10:54)
[2024-02-15] MEDS: HYDRALAZINE 20MG/ML VIAL IV ONE (10:54)
[2024-02-15] MEDS ORDERED: DEXTROSE 50% WATER 50ML SYRINGE IV PRN (12:45)
[2024-02-15] MEDS ORDERED: IPRATROPIUM/ALBUTEROL 0.5-3(2.5)MG/3ML NEB HHN PRN (12:45)
[2024-02-15] MEDS: POTASSIUM CHLORIDE 20MEQ TABLET SR PO NR (13:51)
[2024-02-15] MEDS: NIFEDIPINE XL 30MG TAB PO SCH (14:09)
[2024-02-15] MEDS: BLOOD SUGAR DIAGNOSTIC STRIP TEST SCH (14:13)
[2024-02-15 14:25] LABS: IRON 62 ug/dL (50-170)
[2024-02-15 14:28] LABS: PHOSPHORUS 3.2 mg/dL (2.5-4.9); TOTAL IRON BINDING CAPACITY 287 ug/dl (250-425)
[2024-02-15 16:00] LABS: CREATINE KINASE MB FRACTION < 0.5 ng/mL (0.5-3.6)
[2024-02-15] MEDS ORDERED: ENOXAPARIN 30MG/0.3ML SYR SUBCUT SCH (16:00)
[2024-02-15 16:02] LABS: CREATINE KINASE 50 IU/L (34-145)
[2024-02-15 16:04] LABS: FERRITIN 638 ng/mL (10-291)
[2024-02-15 16:05] LABS: FOLIC ACID (FOLATE) SERUM 18.34 ng/mL (>5.38); VITAMIN B12 SERUM 354 pg/mL (211-911)
[2024-02-15 16:07] LABS: TROPONIN I HIGH SENSITIVITY 80 ng/L (3.0-34)
[2024-02-15] MEDS: HYDRALAZINE 20MG/ML VIAL IV PRN (17:04)
[2024-02-15 17:30] VITALS: BP 182/120; PULSE 90; RESP 16; TEMP 35.78064
[2024-02-15] MEDS ORDERED: LOSA100T33 PO (19:21)
[2024-02-15] MEDS: ACETAMINOPHEN 325MG TABLET PO PRN (19:28)
[2024-02-15 20:00] VITALS: BP 156/99; PULSE 103; RESP 20; TEMP 37.00296; O2SAT 97
[2024-02-15] MEDS: LOSARTAN 100 MG TABLET PO SCH (20:09)
[2024-02-15 20:11] LABS: HEPATITIS B SURFACE ANTIGEN NEGATIVE (Negative)
[2024-02-15 20:32] LABS: HEPATITIS A AB IGM NEGATIVE (Negative); HEPATITIS B CORE AB IGM NEGATIVE (Negative)
[2024-02-15 20:33] LABS: HEPATITIS C AB NON REACTIVE (Neg) (Negative)
[2024-02-15] MEDS: MESALAMINE 400 MG CAPSULE.DR PO SCH (21:09)
[2024-02-15] MEDS: LEVETIRACETAM 500MG/5ML CUP PO SCH (21:09)
[2024-02-15] MEDS: METOPROLOL TARTRATE 25MG TABLET PO SCH (21:10)
[2024-02-15] MEDS: FAMOTIDINE 20MG TABLET PO SCH (21:10)
[2024-02-15] MEDS: EPOETIN ALFA-EPBX 4,000 UNIT/ML VIAL SUBCUT SCH (21:11)
[2024-02-15 22:13] VITALS: BP 150/89; PULSE 99; RESP 19; TEMP 36.8628
[2024-02-16] VITALS (17 sets, daily range): BP systolic 93–209; BP diastolic 65–128; PULSE 75–106; RESP 16–20; TEMP 36.114–38.22528; O2SAT 95–100
[2024-02-16 00:19] LABS: CREATINE KINASE MB FRACTION < 0.5 ng/mL (0.5-3.6)
[2024-02-16 00:20] LABS: CREATINE KINASE 44 IU/L (34-145)
[2024-02-16 00:24] LABS: TROPONIN I HIGH SENSITIVITY 85 ng/L (3.0-34)
[2024-02-16] MEDS ORDERED: ASPIRIN 81MG EC TABLET PO SCH (09:00)
[2024-02-16] MEDS: DIPHENHYDRAMINE 50MG/ML VIAL IV STA (09:26)
[2024-02-16] MEDS: FOLIC ACID 1MG TABLET PO SCH (11:32)
[2024-02-16] MEDS: DIPHENHYDRAMINE 25MG CAPSULE PO PRN (11:34)
[2024-02-16 13:58] LABS: CALCIUM 8.5 mg/dL (8.7-10.4); CARBON DIOXIDE 26 mEq/L (21-32); CHLORIDE 102 mEq/L (98-107); POTASSIUM 4.6 mEq/L (3.5-5.1); SODIUM 135 mEq/L (136-145)
[2024-02-16 14:03] LABS: CREATININE 4.3 mg/dL (0.6-1.0); GLUCOSE 98 mg/dL (70-105)
[2024-02-16 14:04] LABS: LDL CHOLESTEROL 62 mg/dL (5-100); TRIGLYCERIDE 130 mg/dL (0-150); UREA NITROGEN BLOOD 17 mg/dL (9-23)
[2024-02-16 14:05] LABS: ALANINE AMINOTRANSFERASE < 7 IU/L (10-49); ALBUMIN 3.5 g/dL (3.2-4.8); ASPARTATE AMINOTRANSFERASE 12 IU/L (<34); CHOLESTEROL 144 mg/dL (<200); HDL CHOLESTEROL 53 mg/dL (>65)
[2024-02-16 14:06] LABS: BILIRUBIN TOTAL < 0.2 mg/dL (0.1-1.0); PHOSPHORUS 3.6 mg/dL (2.5-4.9)
[2024-02-16 14:08] LABS: T4 FREE 0.76 ng/dL (0.89-1.76); THYROID STIMULATING HORMONE 1.65 uIU/mL (0.55-4.78)
[2024-02-16 14:09] LABS: BILIRUBIN DIRECT < 0.1 mg/dL (<=3.0)
[2024-02-16 14:30] LABS: BASOPHILS % 0.3 % (0.0-2.0); EOSINOPHILS % 1.6 % (0.0-5.0); HEMOGLOBIN. 9.4 g/dL (12.0-16.0); LYMPHOCYTES % 14.4 % (20.0-50.0); MEAN CORPUSCULAR HEMOGLOBIN 29.2 pg (28.0-32.0); MEAN CORPUSCULAR HGB CONC 31.4 g/dL (31.0-37.0); MEAN CORPUSCULAR VOLUME 93.1 fL (81.0-99.0); MONOCYTES % 9.1 % (2.0-8.0); NEUTROPHILS % 74.6 % (40.0-76.0); PLATELET 226 x1000/uL (130-400); RED BLOOD CELL COUNT 3.22 mill/uL (4.2-5.4); WHITE BLOOD COUNT 8.1 x1000/uL (4.5-11.0)
[2024-02-16] MEDS ORDERED: NALOXONE HCL 0.4MG/ML VIAL IV PRN (16:15)
[2024-02-16] MEDS: HYDROCODONE/ACETAMINOPHEN 5/325MG TABLET PO PRN (16:38)
[2024-02-16] MEDS: QUETIAPINE FUMARATE 50MG TABLET PO SCH (21:43)
[2024-02-16] MEDS: NIFEDIPINE XL 60MG TAB PO SCH (21:44)
[2024-02-17] VITALS (11 sets, daily range): BP systolic 101–198; BP diastolic 70–123; PULSE 70–105; RESP 18–20; TEMP 36.55848–38.00304; O2SAT 97–100
[2024-02-17 08:50] LABS: BASOPHILS % 0.9 % (0.0-2.0); EOSINOPHILS % 1.4 % (0.0-5.0); HEMATOCRIT. 31.2 % (36.0-48.0); HEMOGLOBIN. 9.9 g/dL (12.0-16.0); LYMPHOCYTES % 12.2 % (20.0-50.0); MEAN CORPUSCULAR HEMOGLOBIN 28.4 pg (28.0-32.0); MEAN CORPUSCULAR HGB CONC 31.8 g/dL (31.0-37.0); MEAN CORPUSCULAR VOLUME 89.4 fL (81.0-99.0); MEAN PLATELET VOLUME 6.6 fl (7.4-10.4); MONOCYTES % 9.5 % (2.0-8.0); PLATELET 249 x1000/uL (130-400); RED BLOOD CELL COUNT 3.49 mill/uL (4.2-5.4); WHITE BLOOD COUNT 9.4 x1000/uL (4.5-11.0)
[2024-02-17 09:17] LABS: CARBON DIOXIDE 25 mEq/L (21-32); CHLORIDE 101 mEq/L (98-107); SODIUM 134 mEq/L (136-145)
[2024-02-17 09:18] LABS: CALCIUM 9.3 mg/dL (8.7-10.4)
[2024-02-17 09:23] LABS: GLUCOSE 86 mg/dL (70-105); UREA NITROGEN BLOOD 28 mg/dL (9-23)
[2024-02-17 09:25] LABS: PHOSPHORUS 5.2 mg/dL (2.5-4.9)
[2024-02-17 09:28] LABS: T4 FREE 0.63 ng/dL (0.89-1.76)
[2024-02-17 09:38] LABS: CREATININE 6.2 mg/dL (0.6-1.0)
[2024-02-17 09:39] LABS: TROPONIN I HIGH SENSITIVITY 63 ng/L (3.0-34)
[2024-02-17] MEDS: DIPHENHYDRAMINE 50MG/ML VIAL IV NR (15:01)
[2024-02-17 16:45] LABS: CREATINE KINASE MB FRACTION < 0.5 ng/mL (0.5-3.6)
[2024-02-17 16:47] LABS: CREATINE KINASE 35 IU/L (34-145)
[2024-02-17] MEDS: CLONIDINE 0.2MG TABLET PO NR (17:21)
[2024-02-18] VITALS: BP 128/99; PULSE 80; RESP 20; TEMP 36.114
[2024-02-18 00:49] LABS: CREATINE KINASE MB FRACTION < 0.5 ng/mL (0.5-3.6)
[2024-02-18 00:51] LABS: CREATINE KINASE 23 IU/L (34-145)
[2024-02-18 04:00] VITALS: BP 145/89; PULSE 98; RESP 20; TEMP 37.00296
[2024-02-18 08:00] VITALS: BP 141/100; PULSE 101; RESP 18; TEMP 36.114; O2SAT 96
[2024-02-18 11:04] LABS: BASOPHILS % 0.3 % (0.0-2.0); EOSINOPHILS % 0.7 % (0.0-5.0); HEMATOCRIT. 33.3 % (36.0-48.0); HEMOGLOBIN. 10.4 g/dL (12.0-16.0); LYMPHOCYTES % 8.2 % (20.0-50.0); MEAN CORPUSCULAR HEMOGLOBIN 28.4 pg (28.0-32.0); MEAN CORPUSCULAR HGB CONC 31.2 g/dL (31.0-37.0); MEAN CORPUSCULAR VOLUME 91.1 fL (81.0-99.0); MEAN PLATELET VOLUME 7.2 fl (7.4-10.4); MONOCYTES % 7.3 % (2.0-8.0); NEUTROPHILS % 83.5 % (40.0-76.0); PLATELET 255 x1000/uL (130-400); RED BLOOD CELL COUNT 3.66 mill/uL (4.2-5.4); RED CELL DISTRIBUTION WIDTH 19.4 % (11.6-14.6); WHITE BLOOD COUNT 8.2 x1000/uL (4.5-11.0)
[2024-02-18 11:09] LABS: CHLORIDE 101 mEq/L (98-107); POTASSIUM 4.3 mEq/L (3.5-5.1); SODIUM 135 mEq/L (136-145)
[2024-02-18 11:10] LABS: CALCIUM 9.5 mg/dL (8.7-10.4); CARBON DIOXIDE 24 mEq/L (21-32)
[2024-02-18 11:14] LABS: CREATINE KINASE MB FRACTION < 0.5 ng/mL (0.5-3.6)
[2024-02-18 11:15] LABS: GLUCOSE 174 mg/dL (70-105); UREA NITROGEN BLOOD 30 mg/dL (9-23)
[2024-02-18 11:17] LABS: CREATINE KINASE 25 IU/L (34-145); PHOSPHORUS 6.6 mg/dL (2.5-4.9)
[2024-02-18 12:00] VITALS: BP 140/98; PULSE 83; RESP 18; TEMP 36.114; TEMP 36.11400; O2SAT 97
[2024-02-18 14:21] VITALS: BP 140/98; PULSE 83; TEMP 97; O2SAT 97
== END 2024-02-18 17:42 | disposition home or self-care (01) | DRG 52 ==
LOC: ER 09:06 → EDBEDREQ 09:39 → 8WST 12:06 → EDBEDREQ 12:09
PROVIDERS: ADMIT Internal Medicine; ATTEND Internal Medicine
DX: I67.4 Hypertensive encephalopathy (principal); D69.6 Thrombocytopenia, unspecified; N18.6 End stage renal disease; I13.2 Hypertensive heart and chronic kidney disease with heart failure and with stage 5 chronic kidney disease, or end stage renal disease; D63.8 Anemia in other chronic diseases classified elsewhere; D57.1 Sickle-cell disease without crisis; E11.22 Type 2 diabetes mellitus with diabetic chronic kidney disease; E78.5 Hyperlipidemia, unspecified; D50.8 Other iron deficiency anemias; E55.9 Vitamin D deficiency, unspecified; E87.6 Hypokalemia; F15.10 Other stimulant abuse, uncomplicated; F16.10 Hallucinogen abuse, uncomplicated; G40.909 Epilepsy, unspecified, not intractable, without status epilepticus; I50.32 Chronic diastolic (congestive) heart failure; R55 Syncope and collapse
CPT/HCPCS: 36415; 71045; 80048; 80061; 80076; 82306; 82550; 82553; 82607; 82728; 82746; 82962; 83036; 83540; 83550; 83605; 83735; 84100; 84145; 84439; 84443; 84484; 85025; 86705; 86709; 86850; 86900; 87340; 90935; 93005; 93306; 99285; C1893; J0360; J0885; J1200; J2270; J2405; Q0163

== ENCOUNTER 2024-11-13 19:53 | Inpatient (IN) | payer MEDICAID, OTHER ==
[~2024-11-13] VITALS: Ht 215.9 cm; Wt 56.3 kg
[~2024-11-13 19:53] MED LIST changes: -DOCU-150 PO; +DOCU-422 PO; +LOSA100T33 PO
[2024-11-13 21:23] LABS: BASOPHILS % 0.8 % (0.0-2.0); EOSINOPHILS % 1.4 % (0.0-5.0); HEMATOCRIT. 37.1 % (36.0-48.0); HEMOGLOBIN. 11.7 g/dL (12.0-16.0); LYMPHOCYTES % 23.1 % (20.0-50.0); MEAN PLATELET VOLUME 6.9 fl (7.4-10.4); MONOCYTES % 13.7 % (2.0-8.0); NEUTROPHILS % 61.0 % (40.0-76.0); PLATELET 290 x1000/uL (130-400); RED BLOOD CELL COUNT 4.03 mill/uL (4.2-5.4); RED CELL DISTRIBUTION WIDTH 24.9 % (11.6-14.6)
[2024-11-13] MEDS: MORPHINE SULFATE 4 MG/ML INJ (FOR IV/IM USE) IV ONE (21:23)
[2024-11-13] MEDS: LABETALOL 5MG/ML 4ML INJ IV ONE (21:24)
[2024-11-13 21:26] LABS: ADD RBC MORPHOLOGY YES
[2024-11-13 21:31] LABS: INR 1.0
[2024-11-13 21:40] LABS: UREA NITROGEN BLOOD 76 mg/dL (9-23)
[2024-11-13 21:56] LABS: CREATININE 9.5 mg/dL (0.6-1.0)
[2024-11-13 21:57] LABS: TROPONIN I HIGH SENSITIVITY 188 ng/L (3.0-34)
[2024-11-13] MEDS: PIPERACILLIN/TAZO 3.375G/50ML 50 ML IV SCH (22:05)
[2024-11-13] MEDS: HYDRALAZINE 20MG/ML VIAL IV NR (22:05)
[2024-11-13 22:17] LABS: ASPARTATE AMINOTRANSFERASE 14 IU/L (<34); BILIRUBIN DIRECT < 0.1 mg/dL (<=3.0)
[2024-11-13 22:18] LABS: BILIRUBIN TOTAL < 0.2 mg/dL (0.1-1.0); PROTEIN TOTAL 7.1 g/dL (6.0-8.3)
[2024-11-13] MEDS: DIPHENHYDRAMINE 50MG CAPSULE PO ONE (22:45)
[2024-11-13 23:37] LABS: PLATELET ESTIMATE NORMAL
[2024-11-14] VITALS (80 sets, daily range): BP systolic 109–229; BP diastolic 81–140; PULSE 82–132; RESP 11–28; TEMP 36.50292–37; O2SAT 92–99
[2024-11-14] MEDS: DIPHENHYDRAMINE 50MG/ML VIAL IV ONE (00:28)
[2024-11-14 00:31] LABS: TROPONIN I HIGH SENSITIVITY 195 ng/L (3.0-34)
[2024-11-14 01:08] LABS: HCG SCREEN NEGATIVE
[2024-11-14] MEDS: NITROGLYCERIN 50MG PREMIX 250 ML IV STA (01:47)
[2024-11-14] MEDS: HYDROCODONE/ACETAMINOPHEN 5/325MG TABLET PO PRN (04:27)
[2024-11-14] MEDS ORDERED: NALOXONE HCL 0.4MG/ML VIAL IV PRN (04:30)
[2024-11-14] MEDS: NICARDIPINE 40MG/200ML PREMIX 200 ML IV PRN (04:46)
[2024-11-14] MEDS: CALCIUM ACETATE 667MG CAPSULE PO SCH (06:20)
[2024-11-14] MEDS: DIPHENHYDRAMINE 50MG/ML VIAL IV PRN (06:58)
[2024-11-14] MEDS ORDERED: ONDANSETRON HCL 4MG/2ML INJ IV PRN (08:00)
[2024-11-14] MEDS: MESALAMINE 400 MG CAPSULE.DR PO SCH (09:54)
[2024-11-14] MEDS: ASPIRIN 81MG EC TABLET PO SCH (09:54)
[2024-11-14] MEDS: LOSARTAN 100 MG TABLET PO SCH (09:54)
[2024-11-14] MEDS: FOLIC ACID 1MG TABLET PO SCH (09:55)
[2024-11-14] MEDS: METOPROLOL TARTRATE 25MG TABLET PO SCH (09:55)
[2024-11-14] MEDS: DOCUSATE SODIUM 100MG CAPSULE PO SCH (09:55)
[2024-11-14] MEDS: FAMOTIDINE 20MG/2ML VIAL IV SCH (09:55)
[2024-11-14] MEDS: PANTOPRAZOLE SODIUM 40 MG/VIAL IV SCH (09:56)
[2024-11-14] MEDS: ONDANSETRON HCL 4MG/2ML INJ IV PRN (10:40)
[2024-11-14 14:02] LABS: HEPATITIS C AB NON REACTIVE (Neg) (Negative)
[2024-11-14 14:58] LABS: HEPATITIS A AB IGM NEGATIVE (Negative); HEPATITIS B CORE AB IGM NEGATIVE (Negative)
[2024-11-14 14:59] LABS: HEPATITIS C AB NON REACTIVE (Neg) (Negative)
[2024-11-14] MEDS ORDERED: ALBUMIN HUMAN 25GM/500ML (5%) IV NR (18:00)
[2024-11-14] MEDS: MORPHINE SULFATE 2 MG/ML INJ (NOT FOR IM USE) IV PRN (20:36)
[2024-11-14] MEDS: ATORVASTATIN CALCIUM 20MG TABLET PO SCH (20:51)
[2024-11-14] MEDS: QUETIAPINE FUMARATE 50MG TABLET PO SCH ×2 (20:51)
[2024-11-14] MEDS ORDERED: QUETIAPINE FUMARATE 200MG TABLET PO SCH (21:00)
[2024-11-14] MEDS: CARVEDILOL 12.5MG TABLET PO SCH (23:12)
[2024-11-14] MEDS: QUETIAPINE FUMARATE 200MG TABLET PO NR (23:12)
[2024-11-14] MEDS: TRAZODONE HCL 50MG TABLET PO SCH (23:13)
[2024-11-15] VITALS (82 sets, daily range): BP systolic 116–176; BP diastolic 79–118; PULSE 93–130; RESP 11–27; TEMP 36.114–36.9; O2SAT 92–100
[2024-11-15 05:11] LABS: HEMATOCRIT. 33.8 % (36.0-48.0); HEMOGLOBIN. 10.6 g/dL (12.0-16.0); MEAN PLATELET VOLUME 6.6 fl (7.4-10.4); PLATELET 220 x1000/uL (130-400); RED BLOOD CELL COUNT 3.70 mill/uL (4.2-5.4); RED CELL DISTRIBUTION WIDTH 25.2 % (11.6-14.6)
[2024-11-15] MEDS: NIFEDIPINE XL 30MG TAB PO SCH (05:29)
[2024-11-15 05:32] LABS: UREA NITROGEN BLOOD 47.0 mg/dL (9-23)
[2024-11-15 05:43] LABS: CREATININE 8.0 mg/dL (0.6-1.0)
[2024-11-15] MEDS: ASPIRIN 81MG EC TABLET PO SCH (08:56)
[2024-11-15] MEDS: QUETIAPINE FUMARATE 200MG TABLET PO SCH (09:00)
[2024-11-15] MEDS: HYDRALAZINE HCL 25MG TABLET PO NR (11:32)
[2024-11-15] MEDS: CARVEDILOL 12.5MG TABLET PO NR (11:33)
[2024-11-15] MEDS: NIFEDIPINE XL 30MG TAB PO NR (12:23)
[2024-11-15 14:25] LABS: EOSINOPHILS % MANUAL 1.0 % (0.0-5.0); LYMPHOCYTES % MANUAL 20.0 % (20.0-60.0); MONOCYTES % MANUAL 14.0 % (2.0-8.0); NEUTROPHILS % MANUAL 65.0 % (45.0-75.0); PLATELET ESTIMATE NORMAL
[2024-11-15] MEDS: HYDRALAZINE 20MG/ML VIAL IV PRN (18:49)
[2024-11-15] MEDS: PIPERACILLIN/TAZO 3.375G/50ML IV SCH (21:03)
[2024-11-15] MEDS: CARVEDILOL 12.5MG TABLET PO SCH (21:04)
[2024-11-15] MEDS: NIFEDIPINE XL 60MG TAB PO SCH (21:05)
[2024-11-15] MEDS: HYDRALAZINE HCL 25MG TABLET PO SCH (21:42)
[2024-11-16] VITALS (25 sets, daily range): BP systolic 116–167; BP diastolic 67–121; PULSE 91–114; RESP 14–27; TEMP 36.9; O2SAT 87–100
[2024-11-16 05:38] LABS: HEMATOCRIT. 37.3 % (36.0-48.0); HEMOGLOBIN. 11.6 g/dL (12.0-16.0); MEAN PLATELET VOLUME 6.5 fl (7.4-10.4); PLATELET 212 x1000/uL (130-400); RED BLOOD CELL COUNT 4.05 mill/uL (4.2-5.4); RED CELL DISTRIBUTION WIDTH 24.4 % (11.6-14.6)
[2024-11-16 05:58] LABS: UREA NITROGEN BLOOD 29.0 mg/dL (9-23)
[2024-11-16 06:02] LABS: CREATININE 5.9 mg/dL (0.6-1.0)
[2024-11-16] MEDS: SODIUM ZIRCONIUM CYCLOSILICATE 10GM/PACKET PO SCH (09:16)
[2024-11-16 09:34] LABS: BAND% 2.0 % (1.0-6.0); EOSINOPHILS % MANUAL 2.0 % (0.0-5.0); LYMPHOCYTES % MANUAL 14.0 % (20.0-60.0); MONOCYTES % MANUAL 16.0 % (2.0-8.0); NEUTROPHILS % MANUAL 66.0 % (45.0-75.0); PLATELET ESTIMATE NORMAL
[2024-11-17] VITALS (14 sets, daily range): BP systolic 124–154; BP diastolic 79–100; PULSE 90–113; RESP 18–20; TEMP 35.7–36.6; O2SAT 97–98
[2024-11-17 06:34] LABS: UREA NITROGEN BLOOD 43.0 mg/dL (9-23)
[2024-11-17 06:35] LABS: CREATININE 8.2 mg/dL (0.6-1.0)
[2024-11-17 06:36] LABS: HEMATOCRIT. 39.2 % (36.0-48.0); HEMOGLOBIN. 12.3 g/dL (12.0-16.0); MEAN PLATELET VOLUME 7.4 fl (7.4-10.4); PLATELET 219 x1000/uL (130-400); RED BLOOD CELL COUNT 4.28 mill/uL (4.2-5.4); RED CELL DISTRIBUTION WIDTH 24.1 % (11.6-14.6)
[2024-11-17] MEDS ORDERED: COR12 PO (13:55)
[2024-11-17] MEDS ORDERED: NIFE-32 PO (13:55)
[2024-11-17] MEDS ORDERED: LOSA100T33 MT (13:55)
[2024-11-17] MEDS ORDERED: LEVO250T74 MT (13:56)
[2024-11-17 14:21] LABS: BAND% 4.0 % (1.0-6.0); EOSINOPHILS % MANUAL 1.0 % (0.0-5.0); LYMPHOCYTES % MANUAL 20.0 % (20.0-60.0); MONOCYTES % MANUAL 15.0 % (2.0-8.0); NEUTROPHILS % MANUAL 60.0 % (45.0-75.0)
[2024-11-17 14:22] LABS: PLATELET ESTIMATE NORMAL
[2024-11-17] MEDS: ACETAMINOPHEN 325MG TABLET PO PRN (15:40)
[2024-11-17] MEDS: HYDRALAZINE HCL 100MG TABLET PO SCH (21:49)
[2024-11-17] MEDS: ENOXAPARIN 30MG/0.3ML SYR SUBCUT SCH (21:52)
[2024-11-18] VITALS: BP 148/88; PULSE 102; RESP 18; TEMP 36.2; O2SAT 97
[2024-11-18 04:00] VITALS: BP 147/100; PULSE 99; RESP 18; TEMP 36.4; O2SAT 100
[2024-11-18 08:00] VITALS: BP 144/103; PULSE 112; RESP 20; TEMP 36.6; O2SAT 98
[2024-11-18 10:18] VITALS: BP 144/103; PULSE 112; TEMP 97.8; O2SAT 98
[2024-11-18 12:00] VITALS: BP 139/97; PULSE 98; RESP 18; TEMP 36.6; O2SAT 98
== END 2024-11-18 15:50 | disposition home or self-care (01) | DRG 199 ==
LOC: ER 19:53 → MICUNO 23:39 → EDBEDREQTM 23:42 → EDBEDREQ 23:42 → EDBEDREQSVC 23:42 → ENRESERV 11-14 02:25 → 7WST 11-16 22:07
PROVIDERS: ADMIT Internal Medicine; ATTEND Internal Medicine
PROC: 02HV33Z Insertion of Infusion Device into Superior Vena Cava, Percutaneous Approach (ICD-10-PCS; principal; 2024-11-14)
PROC: B548ZZA Ultrasonography of Superior Vena Cava, Guidance (ICD-10-PCS; 2024-11-14)
PROC: 5A1D70Z Performance of Urinary Filtration, Intermittent, Less than 6 Hours Per Day (ICD-10-PCS; 2024-11-14)
PROC: 5A1D70Z Performance of Urinary Filtration, Intermittent, Less than 6 Hours Per Day (ICD-10-PCS; 2024-11-15)
PROC: 5A1D70Z Performance of Urinary Filtration, Intermittent, Less than 6 Hours Per Day (ICD-10-PCS; 2024-11-17)
DX: I16.1 Hypertensive emergency (principal); J96.01 Acute respiratory failure with hypoxia; I50.33 Acute on chronic diastolic (congestive) heart failure; I21.A1 Myocardial infarction type 2; N18.6 End stage renal disease; D69.6 Thrombocytopenia, unspecified; D63.8 Anemia in other chronic diseases classified elsewhere; Q24.5 Malformation of coronary vessels; I13.2 Hypertensive heart and chronic kidney disease with heart failure and with stage 5 chronic kidney disease, or end stage renal disease; J44.9 Chronic obstructive pulmonary disease, unspecified; D57.3 Sickle-cell trait; F15.10 Other stimulant abuse, uncomplicated; G40.909 Epilepsy, unspecified, not intractable, without status epilepticus; F16.10 Hallucinogen abuse, uncomplicated; M54.2 Cervicalgia; Z87.01 Personal history of pneumonia (recurrent); Z90.49 Acquired absence of other specified parts of digestive tract; Z59.00 Homelessness unspecified; Z91.199 Patient's noncompliance with other medical treatment and regimen due to unspecified reason
CPT/HCPCS: 36415; 71045; 76705; 80048; 80076; 83605; 83880; 84145; 84443; 84484; 84703; 85025; 86705; 86709; 87340; 90935; 93005; 93306; 97162; 99291; A4606; A6261; J0360; J1200; J1308; J1650; J2270; J2405; J2470; J2543; J3490; P9041; Q0163

== ENCOUNTER 2024-12-02 08:18 | Emergency (ER) | payer MEDICAID ==
[~2024-12-02] VITALS: Ht 157.5 cm; Wt 55.0 kg
[~2024-12-02 08:18] MED LIST changes: +COR12 PO; +LEVO250T74 MT; +LOSA100T33 MT; +NIFE-32 PO
[2024-12-02 08:23] VITALS: TEMP 36.8; O2SAT 97
[2024-12-02] MEDS: CLONIDINE 0.3MG TABLET PO ONE (09:27)
[2024-12-02] MEDS: LOSARTAN 100 MG TABLET PO ONE (09:27)
[2024-12-02] MEDS: NIFEDIPINE XL 30MG TAB PO SCH (09:28)
[2024-12-02] MEDS: NIFEDIPINE XL 60MG TAB PO ONE (10:38)
[2024-12-02 10:43] VITALS: TEMP 98.3
[2024-12-02] MEDS: ACETAMINOPHEN 500MG TABLET PO ONE (10:43)
[2024-12-02] MEDS: CARVEDILOL 12.5MG TABLET PO ONE (10:43)
[2024-12-02 10:52] VITALS: BP 142/94; PULSE 83; RESP 12; O2SAT 95
== END 2024-12-02 10:55 | disposition home or self-care (01) ==
LOC: ER 08:18
DX: I13.2 Hypertensive heart and chronic kidney disease with heart failure and with stage 5 chronic kidney disease, or end stage renal disease (principal); E11.22 Type 2 diabetes mellitus with diabetic chronic kidney disease; I50.9 Heart failure, unspecified; N18.6 End stage renal disease; E78.5 Hyperlipidemia, unspecified; J44.9 Chronic obstructive pulmonary disease, unspecified; Z55.6 Problems related to health literacy; Z98.890 Other specified postprocedural states; Z59.01 Sheltered homelessness; Z79.82 Long term (current) use of aspirin; Z79.899 Other long term (current) drug therapy; Z90.49 Acquired absence of other specified parts of digestive tract; Z99.2 Dependence on renal dialysis; Z91.158 Patient's noncompliance with renal dialysis for other reason
CPT/HCPCS: 99284

== ENCOUNTER 2025-01-19 20:13 | Inpatient (IN) | payer MEDICAID, OTHER ==
[~2025-01-19] VITALS: Ht 149.9 cm; Wt 63.0 kg
[2025-01-19 21:06] LABS: PLATELET 259 x1000/uL (130-400); RED BLOOD CELL COUNT 3.84 mill/uL (4.2-5.4); RED CELL DISTRIBUTION WIDTH 24.4 % (11.6-14.6)
[2025-01-19] MEDS: TRAZODONE HCL 50MG TABLET PO SCH (21:13)
[2025-01-19] MEDS: HYDRALAZINE HCL 50MG TABLET PO ONE (21:14)
[2025-01-19 21:26] LABS: UREA NITROGEN BLOOD 56 mg/dL (9-23)
[2025-01-19 21:33] LABS: CREATININE 12.3 mg/dL (0.6-1.0); TROPONIN I HIGH SENSITIVITY 132 ng/L (3.0-34)
[2025-01-19] MEDS: CLONIDINE 0.3MG TABLET PO ONE (21:39)
[2025-01-19] MEDS: AMLODIPINE 10MG TABLET PO ONE (21:39)
[2025-01-19] MEDS: SODIUM BICARBONATE 8.4% 50MEQ/50ML VIAL IV ONE (21:45)
[2025-01-19] MEDS: ALBUTEROL (0.5%) 2.5MG/0.5ML NEB HHN ONE (21:45)
[2025-01-19] MEDS: INSULIN REGULAR (HUMULIN R) 1000UNITS/10ML VIAL IV ONE (21:45)
[2025-01-19] MEDS: DEXTROSE 50% WATER 50ML SYRINGE IV ONE (21:45)
[2025-01-19] MEDS ORDERED: DEXTROSE 50% WATER 50ML SYRINGE IV PRN (23:00)
[2025-01-19] MEDS ORDERED: MAGNESIUM/ALUMINUM HYDROXIDE/SIMETHICONE 30ML UDC PO PRN (23:00)
[2025-01-19] MEDS: CLONIDINE 0.1MG TABLET PO NR (23:47)
[2025-01-19] MEDS: INSULIN REGULAR (HUMULIN R) 1000UNITS/10ML VIAL IV NR (23:50)
[2025-01-19] MEDS: CALCIUM GLUCONATE 100MG/ML 10ML VIAL IV ONE (23:52)
[2025-01-19] MEDS: SODIUM ZIRCONIUM CYCLOSILICATE 10GM/PACKET PO SCH (23:56)
[2025-01-20] VITALS (14 sets, daily range): BP systolic 126–194; BP diastolic 74–125; PULSE 20–92; RESP 18–23; TEMP 35.9–36.6696; O2SAT 95–98
[2025-01-20] MEDS: SODIUM BICARBONATE 8.4% 50MEQ/50ML VIAL IV NR
[2025-01-20 00:07] LABS: UREA NITROGEN BLOOD 71.0 mg/dL (9-23)
[2025-01-20] MEDS: DEXTROSE 50% WATER 50ML SYRINGE IV NR (00:07)
[2025-01-20 00:11] LABS: CREATININE 12.5 mg/dL (0.6-1.0)
[2025-01-20] MEDS: ALBUTEROL (0.5%) 2.5MG/0.5ML NEB HHN NR (00:30)
[2025-01-20] MEDS: CLONIDINE 0.1MG TABLET PO PRN (00:50)
[2025-01-20] MEDS: MORPHINE SULFATE 2 MG/ML INJ (NOT FOR IM USE) IV PRN (01:46)
[2025-01-20] MEDS: ONDANSETRON HCL 4MG/2ML INJ IV PRN (01:58)
[2025-01-20] MEDS: ZOLPIDEM TARTRATE 5MG TABLET PO PRN (01:58)
[2025-01-20] MEDS: ACETAMINOPHEN 325MG TABLET PO PRN (07:25)
[2025-01-20] MEDS: CALCIUM ACETATE 667MG CAPSULE PO SCH (07:40)
[2025-01-20] MEDS: INSULIN LISPRO 100 UNITS/ML SUBCUT SCH (07:40)
[2025-01-20] MEDS: BLOOD SUGAR DIAGNOSTIC STRIP TEST SCH (07:41)
[2025-01-20] MEDS: NIFEDIPINE XL 30MG TAB PO SCH (09:00)
[2025-01-20 09:18] LABS: BASOPHILS % 0.4 % (0.0-2.0); EOSINOPHILS % 1.4 % (0.0-5.0); HEMATOCRIT. 34.4 % (36.0-48.0); HEMOGLOBIN. 10.9 g/dL (12.0-16.0); LYMPHOCYTES % 17.5 % (20.0-50.0); MEAN PLATELET VOLUME 7.3 fl (7.4-10.4); MONOCYTES % 13.0 % (2.0-8.0); NEUTROPHILS % 67.7 % (40.0-76.0); PLATELET 240 x1000/uL (130-400); RED BLOOD CELL COUNT 3.76 mill/uL (4.2-5.4); RED CELL DISTRIBUTION WIDTH 24.4 % (11.6-14.6)
[2025-01-20 09:22] LABS: ADD RBC MORPHOLOGY YES
[2025-01-20 09:32] LABS: UREA NITROGEN BLOOD 63.0 mg/dL (9-23)
[2025-01-20 09:38] LABS: CREATININE 13.0 mg/dL (0.6-1.0); TROPONIN I HIGH SENSITIVITY 129.0 ng/L (3.0-34)
[2025-01-20] MEDS: CARVEDILOL 12.5MG TABLET PO SCH (09:40)
[2025-01-20] MEDS: LEVETIRACETAM 500MG/5ML CUP PO SCH (09:40)
[2025-01-20] MEDS: PANTOPRAZOLE SODIUM 40 MG/VIAL IV SCH (09:40)
[2025-01-20] MEDS: MESALAMINE 400 MG CAPSULE.DR PO SCH (09:40)
[2025-01-20] MEDS: ENOXAPARIN 30MG/0.3ML SYR SUBCUT SCH (09:40)
[2025-01-20] MEDS: FOLIC ACID 1MG TABLET PO SCH (09:41)
[2025-01-20] MEDS: ASPIRIN 81MG EC TABLET PO SCH (09:41)
[2025-01-20] MEDS: DIPHENHYDRAMINE 50MG/ML VIAL IV SCH (11:32)
[2025-01-20] MEDS: IPRATROPIUM/ALBUTEROL 0.5-3(2.5)MG/3ML NEB NEB SCH (11:59)
[2025-01-20 12:33] LABS: HEPATITIS A AB IGM NEGATIVE (Negative)
[2025-01-20 12:34] LABS: HEPATITIS B CORE AB IGM NEGATIVE (Negative); HEPATITIS C AB NON REACTIVE (Neg) (Negative)
[2025-01-20 17:12] LABS: PLATELET ESTIMATE NORMAL
[2025-01-20] MEDS: QUETIAPINE FUMARATE 50MG TABLET PO SCH (21:02)
[2025-01-20] MEDS: ATORVASTATIN CALCIUM 20MG TABLET PO SCH (21:02)
[2025-01-20 22:05] LABS: TROPONIN I HIGH SENSITIVITY 113 ng/L (3.0-34)
[2025-01-21] VITALS (16 sets, daily range): BP systolic 145–189; BP diastolic 84–120; PULSE 62–97; RESP 16–20; TEMP 36.3918–36.7; O2SAT 93–98
[2025-01-21] MEDS: DIPHENHYDRAMINE 50MG/ML VIAL IV PRN (00:45)
[2025-01-21] MEDS: HYDROCODONE/ACETAMINOPHEN 5/325MG TABLET PO PRN (05:09)
[2025-01-21 09:16] LABS: HEMATOCRIT. 39.0 % (36.0-48.0); HEMOGLOBIN. 12.0 g/dL (12.0-16.0); MEAN PLATELET VOLUME 7.1 fl (7.4-10.4); PLATELET 237 x1000/uL (130-400); RED BLOOD CELL COUNT 4.24 mill/uL (4.2-5.4); RED CELL DISTRIBUTION WIDTH 24.7 % (11.6-14.6)
[2025-01-21 09:24] LABS: UREA NITROGEN BLOOD 38.0 mg/dL (9-23)
[2025-01-21 09:53] LABS: CREATININE 9.0 mg/dL (0.6-1.0)
[2025-01-21 13:21] LABS: EOSINOPHILS % MANUAL 1.0 % (0.0-5.0); LYMPHOCYTES % MANUAL 28.0 % (20.0-60.0); MONOCYTES % MANUAL 10.0 % (2.0-8.0); NEUTROPHILS % MANUAL 61.0 % (45.0-75.0); PLATELET ESTIMATE NORMAL
[2025-01-22] VITALS (17 sets, daily range): BP systolic 146–186; BP diastolic 81–124; PULSE 74–95; RESP 17–19; TEMP 36.3–37.1; O2SAT 92–100
[2025-01-22 11:42] LABS: HEMATOCRIT. 37.9 % (36.0-48.0); HEMOGLOBIN. 11.9 g/dL (12.0-16.0); MEAN PLATELET VOLUME 6.5 fl (7.4-10.4); PLATELET 219 x1000/uL (130-400); RED BLOOD CELL COUNT 4.17 mill/uL (4.2-5.4); RED CELL DISTRIBUTION WIDTH 23.9 % (11.6-14.6)
[2025-01-22 11:57] LABS: UREA NITROGEN BLOOD 34.0 mg/dL (9-23)
[2025-01-22 12:20] LABS: CREATININE 8.8 mg/dL (0.6-1.0)
[2025-01-22 12:29] LABS: EOSINOPHILS % MANUAL 7.0 % (0.0-5.0); LYMPHOCYTES % MANUAL 27.0 % (20.0-60.0); MONOCYTES % MANUAL 14.0 % (2.0-8.0); NEUTROPHILS % MANUAL 52.0 % (45.0-75.0); PLATELET ESTIMATE NORMAL
[2025-01-22] MEDS: HYDRALAZINE 20MG/ML VIAL IV PRN (17:01)
[2025-01-22] MEDS ORDERED: NALOXONE HCL 0.4MG/ML VIAL IV PRN (23:00)
[2025-01-23] VITALS: BP 170/111; PULSE 81; RESP 20; TEMP 36.5; O2SAT 100
[2025-01-23 02:25] VITALS: PULSE 97; RESP 18; O2SAT 98
[2025-01-23 04:00] VITALS: BP 166/111; PULSE 91; RESP 20; TEMP 36.4; O2SAT 100
[2025-01-23 08:00] VITALS: BP 153/100; PULSE 86; RESP 19; TEMP 36.4; O2SAT 97
[2025-01-23 08:16] VITALS: PULSE 88; RESP 20
[2025-01-23 08:47] VITALS: BP 153/100; PULSE 86; RESP 19; TEMP 97.5
[2025-01-23] MEDS ORDERED: ONDA4TAB50 MT (10:27)
== END 2025-01-23 12:33 | disposition home or self-care (01) | DRG 199 ==
LOC: ER 20:13 → 8WST 22:15 → EDBEDREQTM 22:20 → EDBEDREQ 22:20 → ENRESERV 22:35
PROVIDERS: ADMIT Internal Medicine; ATTEND Internal Medicine
PROC: 5A1D70Z Performance of Urinary Filtration, Intermittent, Less than 6 Hours Per Day (ICD-10-PCS; principal; 2025-01-20)
PROC: 5A1D70Z Performance of Urinary Filtration, Intermittent, Less than 6 Hours Per Day (ICD-10-PCS; 2025-01-21)
PROC: 5A1D70Z Performance of Urinary Filtration, Intermittent, Less than 6 Hours Per Day (ICD-10-PCS; 2025-01-22)
DX: I16.0 Hypertensive urgency (principal); N18.6 End stage renal disease; D69.6 Thrombocytopenia, unspecified; Q24.5 Malformation of coronary vessels; D63.8 Anemia in other chronic diseases classified elsewhere; I50.9 Heart failure, unspecified; Z99.2 Dependence on renal dialysis; E87.5 Hyperkalemia; R79.89 Other specified abnormal findings of blood chemistry; E11.22 Type 2 diabetes mellitus with diabetic chronic kidney disease; E78.5 Hyperlipidemia, unspecified; D57.3 Sickle-cell trait; G40.909 Epilepsy, unspecified, not intractable, without status epilepticus; F15.10 Other stimulant abuse, uncomplicated; F16.10 Hallucinogen abuse, uncomplicated; I13.2 Hypertensive heart and chronic kidney disease with heart failure and with stage 5 chronic kidney disease, or end stage renal disease; J44.9 Chronic obstructive pulmonary disease, unspecified; J98.11 Atelectasis; Z59.82 Transportation insecurity; Z79.899 Other long term (current) drug therapy; Z91.148 Patient's other noncompliance with medication regimen for other reason; Z87.01 Personal history of pneumonia (recurrent); Z90.49 Acquired absence of other specified parts of digestive tract; Z91.158 Patient's noncompliance with renal dialysis for other reason; Z59.01 Sheltered homelessness
CPT/HCPCS: 36415; 71045; 80048; 82962; 83880; 84443; 84484; 85025; 85027; 86705; 86709; 87340; 90935; 93005; 93970; 94070; 94640; 94664; 99291; A4606; J0360; J0612; J1200; J1650; J1815; J2270; J2405; J2470; J3490